=== PATIENT | male | born 1990 | race African-American/Black ===

== ENCOUNTER 2017-12-04 23:04 | Emergency (ER) | payer OTHER ==
[~2017-12-04] VITALS: Ht 172.7 cm; Wt 113.4 kg
[~2017-12-04 23:04] MED LIST: NAPROSYN500 MG PO; NOHOMEMEDICATIONS
[2017-12-04] MEDS ORDERED: IBUPROFEN 200200 M1 PO (23:24)
[2017-12-04] MEDS ORDERED: ZITHROMAX250 MG PO (23:38)
[2017-12-05 00:36] VITALS: BP 133/80
== END 2017-12-05 00:37 | disposition home or self-care (01) ==
LOC: ER 23:04
DX: J03.90 Acute tonsillitis, unspecified (principal); Z88.0 Allergy status to penicillin

== ENCOUNTER 2018-06-29 18:00 | Emergency (ER) | payer OTHER ==
[~2018-06-29] VITALS: Ht 172.7 cm; Wt 113.4 kg
[~2018-06-29 18:00] MED LIST changes: +IBUPROFEN 200200 M1 PO; +ZITHROMAX250 MG PO
[2018-06-29] MEDS ORDERED: KEFLEX500 M1 PO (18:57)
[2018-06-29 19:22] VITALS: BP 130/88
== END 2018-06-29 19:23 | disposition home or self-care (01) ==
LOC: ER 18:00
DX: J03.90 Acute tonsillitis, unspecified (principal); Z88.0 Allergy status to penicillin

== ENCOUNTER 2020-11-28 15:57 | Emergency (ER) | payer BC ==
[~2020-11-28] VITALS: Ht 172.7 cm; Wt 117.9 kg
[~2020-11-28 15:57] MED LIST changes: +KEFLEX500 M1 PO
[2020-11-28 16:12] VITALS: BP 165/93
[2020-11-28] MEDS ORDERED: AZITHROMYCIN500 MG PO (16:22)
== END 2020-11-28 16:29 | disposition home or self-care (01) ==
LOC: ER 15:57
DX: J02.9 Acute pharyngitis, unspecified (principal); Z88.0 Allergy status to penicillin